=== PATIENT | male | born 1940 | race Caucasian/White ===

== ENCOUNTER 2023-10-27 16:50 | Inpatient (IN) | payer MEDICARE, BC ==
[~2023-10-27] VITALS: Ht 180.3 cm; Wt 94.3 kg
[2023-10-27 17:34] LABS: BASOPHILS % 0.4 % (0.0-2.0); DIFFERENTIAL COMMENT 0; EOSINOPHILS % 0.7 % (0.0-5.0); HEMATOCRIT. 42.2 % (42.0-52.0); HEMOGLOBIN. 14.4 g/dL (14.0-18.0); LYMPHOCYTES % 9.2 % (20.0-50.0); MEAN CORPUSCULAR HEMOGLOBIN 34.9 pg (28.0-32.0); MEAN CORPUSCULAR HGB CONC 34.1 g/dL (31.0-37.0); MEAN CORPUSCULAR VOLUME 102.3 fL (80.0-94.0); MEAN PLATELET VOLUME 7.8 fl (7.4-10.4); MONOCYTES % 12.4 % (2.0-8.0); NEUTROPHILS % 77.3 % (40.0-76.0); PLATELET 173 x1000/uL (130-400); RED BLOOD CELL COUNT 4.13 mill/uL (4.7-6.1); RED CELL DISTRIBUTION WIDTH 14.9 % (11.6-14.6); WHITE BLOOD COUNT 6.5 x1000/uL (4.5-11.0)
[2023-10-27 17:38] LABS: CHLORIDE 103 mEq/L (98-107); POTASSIUM 4.3 mEq/L (3.5-5.1); SODIUM 137 mEq/L (136-145)
[2023-10-27 17:39] LABS: CALCIUM 9.1 mg/dL (8.7-10.4); CARBON DIOXIDE 27 mEq/L (21-32)
[2023-10-27 17:44] LABS: GLUCOSE 125 mg/dL (70-105); UREA NITROGEN BLOOD 22 mg/dL (9-23)
[2023-10-27 17:45] LABS: TROPONIN I HIGH SENSITIVITY 25 ng/L (3.0-53)
[2023-10-27 17:47] LABS: INR 2.1; PROTHROMBIN TIME 22.4 sec (9.6-11.0)
[2023-10-27] MEDS: LACTATED RINGERS 500 ML IV SCH (18:28)
[2023-10-27] MEDS: ONDANSETRON HCL 4MG/2ML INJ IV ONE (19:10)
[2023-10-27 19:39] LABS: TROPONIN I HIGH SENSITIVITY 26 ng/L (3.0-53)
[2023-10-27] MEDS ORDERED: ONDANSETRON HCL 4MG/2ML INJ IV PRN (20:30)
[2023-10-27] MEDS ORDERED: ACETAMINOPHEN 325MG TABLET PO PRN ×2 (20:30)
[2023-10-27] MEDS ORDERED: DOCUSATE SODIUM 100MG CAPSULE PO PRN (20:30)
[2023-10-27] MEDS ORDERED: MAGNESIUM/ALUMINUM HYDROXIDE/SIMETHICONE 30ML UDC PO PRN (20:30)
[2023-10-27] MEDS ORDERED: CLONIDINE 0.1MG TABLET PO PRN (20:30)
[2023-10-27] MEDS ORDERED: CARVEDILOL 12.5MG TABLET PO SCH (21:00)
[2023-10-27 21:15] VITALS: BP 134/78; PULSE 102; RESP 20; TEMP 98.1
[2023-10-27 22:28] LABS: PHOSPHORUS 2.9 mg/dL (2.5-4.9)
[2023-10-27] MEDS: ATORVASTATIN CALCIUM 20MG TABLET PO SCH (23:20)
[2023-10-27] MEDS: GUAIFENESIN 200MG/10ML SUGAR FREE UDC PO PRN (23:21)
[2023-10-27] MEDS: SACUBITRIL/VALSARTAN 24MG/26MG TABLET PO SCH (23:55)
[2023-10-28] MEDS ORDERED: SACU1TAB MT (05:15)
[2023-10-28] MEDS ORDERED: WARF-67 PO ×2 (05:15)
[2023-10-28] MEDS ORDERED: LEVE500T98 PO (05:15)
[2023-10-28] MEDS ORDERED: ATOR20TA65 PO (05:15)
[2023-10-28] MEDS ORDERED: TAMS-11 PO (05:15)
[2023-10-28] MEDS ORDERED: MIRA25TA MT (05:15)
[2023-10-28] MEDS ORDERED: BANOPHEN (05:15)
[2023-10-28] MEDS ORDERED: CARV3.1242 PO (05:15)
[2023-10-28 07:23] LABS: HEMATOCRIT. 39.5 % (42.0-52.0); HEMOGLOBIN. 13.2 g/dL (14.0-18.0); MEAN CORPUSCULAR HEMOGLOBIN 34.2 pg (28.0-32.0); MEAN CORPUSCULAR HGB CONC 33.5 g/dL (31.0-37.0); MEAN CORPUSCULAR VOLUME 102.1 fL (80.0-94.0); MEAN PLATELET VOLUME 7.5 fl (7.4-10.4); PLATELET 150 x1000/uL (130-400); RED BLOOD CELL COUNT 3.86 mill/uL (4.7-6.1); RED CELL DISTRIBUTION WIDTH 14.8 % (11.6-14.6); WHITE BLOOD COUNT 5.3 x1000/uL (4.5-11.0)
[2023-10-28 07:27] LABS: DIFFERENTIAL COMMENT 1
[2023-10-28 07:28] LABS: CHLORIDE 103 mEq/L (98-107); SODIUM 136 mEq/L (136-145)
[2023-10-28 07:29] LABS: CALCIUM 8.8 mg/dL (8.7-10.4); CARBON DIOXIDE 27 mEq/L (21-32); PROTHROMBIN TIME 21.4 sec (9.6-11.0)
[2023-10-28 07:34] LABS: CREATININE 0.9 mg/dL (0.6-1.3); GLUCOSE 103 mg/dL (70-105); TRIGLYCERIDE 105 mg/dL (0-150); UREA NITROGEN BLOOD 16 mg/dL (9-23)
[2023-10-28 07:35] LABS: LDL CHOLESTEROL 80 mg/dL (5-100)
[2023-10-28 07:36] LABS: ALANINE AMINOTRANSFERASE 21 IU/L (10-49); ASPARTATE AMINOTRANSFERASE 22 IU/L (<34); BILIRUBIN DIRECT 0.3 mg/dL (<=3.0); BILIRUBIN TOTAL 0.9 mg/dL (0.1-1.0); CHOLESTEROL 143 mg/dL (<200); HDL CHOLESTEROL 50 mg/dL (>55); PROTEIN TOTAL 6.8 g/dL (6.0-8.3)
[2023-10-28 07:38] LABS: T4 FREE 1.12 ng/dL (0.89-1.76); THYROID STIMULATING HORMONE 2.45 uIU/mL (0.55-4.78)
[2023-10-28 08:00] VITALS: BP 123/60; PULSE 69; RESP 18; TEMP 97.6
[2023-10-28] MEDS: TAMSULOSIN HCL 0.4MG SR CAPSULE PO SCH (08:48)
[2023-10-28] MEDS: LEVETIRACETAM 500MG TABLET PO SCH (08:48)
[2023-10-28] MEDS: ASPIRIN 81MG TABLET PO SCH (08:49)
[2023-10-28] MEDS ORDERED: WARFARIN SODIUM 10MG TABLET PO SCH (09:00)
[2023-10-28] MEDS: WARFARIN SODIUM 2MG TABLET PO SCH (09:32)
[2023-10-28] MEDS: FUROSEMIDE 40MG/4ML VIAL IVP SCH (10:18)
[2023-10-28 12:00] VITALS: BP 114/79; PULSE 94; RESP 16; TEMP 98
[2023-10-28] MEDS: IPRATROPIUM/ALBUTEROL 0.5-3(2.5)MG/3ML NEB HHN PRN (14:27)
[2023-10-28 14:28] VITALS: PULSE 70; RESP 18; O2SAT 98
[2023-10-28 16:00] VITALS: BP 127/65; PULSE 86; RESP 19; TEMP 97.8
[2023-10-28] MEDS ORDERED: WARFARIN SODIUM 2MG TABLET PO SCH ×2 (18:00)
[2023-10-28 18:22] LABS: PLATELET ESTIMATE NORMAL
[2023-10-28 20:00] VITALS: BP 141/54; PULSE 48; RESP 19; TEMP 98.9
[2023-10-28] MEDS: CARVEDILOL 3.125 MG TABLET PO SCH (21:26)
[2023-10-29] VITALS: BP 130/52; PULSE 64; RESP 19; TEMP 98.6
[2023-10-29 04:00] VITALS: BP 137/59; PULSE 75; RESP 19; TEMP 98
[2023-10-29 07:17] LABS: HEMATOCRIT 41.5 % (42.0-52.0); HEMOGLOBIN 13.8 g/dL (14.0-18.0); MEAN CORPUSCULAR HGB CONC 33.2 g/dL (31.0-37.0); MEAN CORPUSCULAR VOLUME 102.7 fL (80.0-94.0); PLATELET 140 x1000/uL (130-400); RED BLOOD CELL COUNT 4.05 mill/uL (4.7-6.1); RED CELL DISTRIBUTION WIDTH 15.1 % (11.6-14.6)
[2023-10-29 07:33] LABS: CHLORIDE 101 mEq/L (98-107); POTASSIUM 4.6 mEq/L (3.5-5.1); SODIUM 135 mEq/L (136-145)
[2023-10-29 07:34] LABS: CARBON DIOXIDE 28 mEq/L (21-32)
[2023-10-29 07:35] LABS: CALCIUM 9.2 mg/dL (8.7-10.4)
[2023-10-29 07:36] LABS: INR 1.7; PROTHROMBIN TIME 18.6 sec (9.6-11.0)
[2023-10-29 07:39] LABS: CREATININE 1.1 mg/dL (0.6-1.3); GLUCOSE 103 mg/dL (70-105)
[2023-10-29 07:40] LABS: UREA NITROGEN BLOOD 19 mg/dL (9-23)
[2023-10-29] MEDS ORDERED: IPRATROPIUM/ALBUTEROL 0.5-3(2.5)MG/3ML NEB HHN PRN (08:00)
[2023-10-29] MEDS: SODIUM CHLORIDE 0.9% 1,000 ML IV SCH (08:00)
[2023-10-29] MEDS: SODIUM CHLORIDE 0.9% 500 ML IV ONE (09:34)
[2023-10-29 10:45] LABS: INR 1.7; PROTHROMBIN TIME 18.3 sec (9.6-11.0)
[2023-10-29] MEDS ORDERED: ASPI-1160 PO (11:28)
[2023-10-29 12:00] VITALS: BP 126/59; PULSE 57; RESP 18; TEMP 98.3
[2023-10-29] MEDS ORDERED: WARFARIN SODIUM 2MG TABLET PO SCH (18:00)
== END 2023-10-29 15:24 | disposition home or self-care (01) | DRG 177 ==
LOC: ER 16:50 → EDBEDREQ 18:55 → EDBEDREQTM 18:55 → 7EST 22:05
PROVIDERS: ADMIT Preventive Medicine Clinical Informatics; ATTEND Preventive Medicine Clinical Informatics
DX: U07.1 COVID-19 (principal); J11.08 Influenza due to unidentified influenza virus with specified pneumonia; J12.82 Pneumonia due to coronavirus disease 2019; J96.01 Acute respiratory failure with hypoxia; D68.9 Coagulation defect, unspecified; I48.91 Unspecified atrial fibrillation; I11.0 Hypertensive heart disease with heart failure; M10.9 Gout, unspecified; I27.20 Pulmonary hypertension, unspecified; I50.9 Heart failure, unspecified; N40.0 Benign prostatic hyperplasia without lower urinary tract symptoms; Z79.01 Long term (current) use of anticoagulants; Z86.73 Personal history of transient ischemic attack (TIA), and cerebral infarction without residual deficits; Z87.891 Personal history of nicotine dependence; Z95.1 Presence of aortocoronary bypass graft; Z82.49 Family history of ischemic heart disease and other diseases of the circulatory system
CPT/HCPCS: 36415; 71045; 80048; 80061; 80076; 80305; 81003; 83735; 83880; 84100; 84145; 84439; 84443; 84484; 85025; 85027; 87420; 87426; 87804; 93005; 93970; 94640; 97116; 97162; 97165; 97530; 99285; J1940; J2405; J7030